=== PATIENT | male | born 1955 | race Caucasian/White ===

== ENCOUNTER 2019-07-15 09:25 | Outpatient (CLI) | payer MEDICARE, SELFPAY ==
--- NOTE | 2019-07-15 09:46 | ECG_ITS ---
Measurements Intervals [place] Rate: 48 P: 11 TX: 214 QRS: 19 QRSD: 98 T: 47 QT: 431 QTc: 387 Interpretive Statements SINUS BRADYCARDIA WITH SINUS ARRHYTHMIA WITH FIRST DEGREE AV BLOCK VOLTAGE CRITERIA FOR LVH ABNORMAL ECG Electronically Signed On 07-15-2019 11:06:19 CDT by Randall Storey D.O.
[2019-07-15 09:59] LABS: Blood Urea Nitrogen 17 mg/dL (9-20); Calcium 8.7 mg/dL (8.4-10.2); Carbon Dioxide 25 mmol/L (22-30); Chloride 104 mmol/L (98-107); Estimated Glomerular Filt Rate > 60; Glucose 106 mg/dL (75-110); Potassium 4.4 mmol/L (3.4-5.0); Sodium 135 mmol/L (137-145)
== END 2019-07-15 09:26 | disposition home or self-care (01) ==
PROVIDERS: PCP Internal Medicine; Visit Provider Orthopaedic Surgery
DX: Z01.818 Encounter for other preprocedural examination (principal); I10 Essential (primary) hypertension
CPT/HCPCS: 36415; 80048; 93005

== ENCOUNTER → 2021-09-30 09:09 | Outpatient (CLI) | payer MEDICARE, SELFPAY ==
--- NOTE | ~2021-09-30 | MR_ITS ---
EXAMINATION: MR knee LT wo con DATE: 09/30/2021 10:11 INDICATION: Left knee pain TECHNIQUE: Magnetic resonance imaging (MRI) of the left knee was performed without intravenous contra st. Sequences included coronal PD-weighted FSE, coronal PD-weighted FS FSE, sagittal T2-weighted FSE , sagittal PD-weighted FS FSE and axial PD weighted fat saturated FSE. COMPARISON: None. FINDINGS: Medial compartment: Complex medial meniscal tear which includes both a longitudinal horizontal tear plane extending to th e inferior articular surface of the posterior horn and body and a parrot-beak configuration tear at t he junction of the body and posterior horn. Additional smaller tear planes extending to the inferior articular surface at the posterior horn. Chondral ulceration with partial thickness cartilage loss in volving greater than 50% the cartilage thickness and chondral surface regularity along the anterior a nd central weightbearing medial femoral condyle. Deeper chondral fissuring with minimal underlying engle barticular edema-like signal change at the junction the anterior to central weightbearing medial femo ral condyle. Additional deep chondral ulceration with underlying edema-like signal change at the medi al aspect of the medial tibial plateau. Lateral compartment: Lateral meniscus is normal. Articular cartilage is normal. Patellofemoral compartment: Partial-thickness chondral ulceration at the patellar apical ridge and deeper with minimal underlying subarticular edema-like signal change at the medial patellar facet. Partial-thickness chondral ulcer ation with deep fissuring at the trochlear groove and medial trochlea with a couple small foci of und erlying edema-like signal change along the medial margin of the medial trochlea. Ligaments and tendons: Anterior and posterior cruciate ligaments are normal. The medial collateral ligament and fibular carli ateral ligament complex are normal. The extensor mechanism is normal. The visualized medial and later al hamstring tendons as well as the iliotibial band are normal. Fluid: Small left knee joint effusion at the suprapatellar pouch. No loose osteochondral bodies identified. Small Bae's cyst with larger moderate-sized ganglion cyst which remains deep to the semimembranosus and medial head of the gastrocnemius. Osseous/other: Bone alignment is normal. No fracture or pathologic marrow replacing process. IMPRESSION: 1. Complex medial meniscal tear. 2. 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 Reviewed, dictated and finalized at location A. IMPRESSION: 1. Complex medial meniscal tear. 2. Mild osteoarthritis with regions of moderate and high-grade chondromalacia a t both the medial and patellofemoral compartments.
--- NOTE | ~2021-09-30 | MR_ITS ---
EXAMINATION: MR shoulder LT wo con DATE: 09/30/2021 10:03 INDICATION: Left shoulder pain TECHNIQUE: Magnetic resonance imaging (MRI) of the left shoulder was performed without intravenous co ntrast. Sequences included axial PD-weighted FS FSE, coronal oblique PD-weighted FS FSE, coronal obli que T2-weighted FS FSE, sagittal PD-weighted FS FSE, and sagittal T1-weighted SE. COMPARISON: None. FINDINGS: Coracoacromial arch: The acromion undersurface is curved in morphology (type II). The coracoacromial ligament is normal. M ild acromioclavicular osteoarthritis. Rotator cuff: The supraspinatus, infraspinatus and teres minor tendons are normal. The subscapularis tendon is norm al. Normal rotator cuff muscle bulk and signal. Biceps tendon, glenoid labrum and glenohumeral cartilage: Long head of the biceps tendon is normal. There is a superior, anterior to posterior tear of the saige oid labrum (SLAP tear) which begins anteriorly at the 12:00 position and extends posteriorly and infe riorly to the 8:00 position posteriorly where there is a tiny peripheral para labral cyst. This tear is located along the base of the labrum. There is a separate small tear along the peripheral free edg e thinning also at the 8:00 position and extending further posteriorly to the 6:00 position. There is a larger bilobed para labral cyst at the spinal glenoid notch with components measuring 6 mm and 8 m m which appears to arise at the 10:00 position of the glenoid. No evident infraspinatus muscle atroph y or abnormal signal to suggest a significant impingement along the deep subscapular nerve. There is partial thickness cartilage loss with smooth chondral surface along the glenoid most prominent along the posterior rim where it involves greater than 50% the cartilage thickness. There is underlying mil d subarticular edema-like signal change as well as more discrete small focus of subarticular cystlike change at the 8:00 position. Additional partial thickness cartilage loss with smooth chondral surfac e and without degenerative subchondral changes along the inferomedial aspect of the humeral head. Fluid: Physiologic amount of fluid in the glenohumeral joint and biceps tendon sheath. Small amount of fluid and synovitis at the deep subscapular recess. No loose osteochondral bodies. Mild increased fluid si gnal in the subacromial/subdeltoid bursa consistent with minimal bursitis. Bones: Normal marrow signal with no edema, fracture or abnormal marrow replacing process. IMPRESSION: 1. Tear of the posterior labrum extending from the 12:00 position superiorly to the 6:00 position inf eriorly with a couple paravertebral cysts the larger extending to the spinoglenoid notch. 2. Mild glenohumeral osteoarthritis. Reviewed, dictated and finalized at location A. IMPRESSION: 1. Tear of the posterior labrum extending from the 12:00 position superiorly to the 6:00 position inferiorly with a couple paravertebral cysts the larger exte nding to the spinoglenoid notch. 2. Mild glenohumeral osteoarthritis.
== END ==
PROVIDERS: PCP Internal Medicine; Visit Provider Specialist
DX: M25.562 Pain in left knee (principal); M25.512 Pain in left shoulder; S83.272A Complex tear of lateral meniscus, current injury, left knee, initial encounter; M17.12 Unilateral primary osteoarthritis, left knee; M94.262 Chondromalacia, left knee; S43.492A Other sprain of left shoulder joint, initial encounter; M19.012 Primary osteoarthritis, left shoulder
CPT/HCPCS: 73221; 73721